=== PATIENT | male | born 1995 | race Caucasian/White ===

== ENCOUNTER 2025-02-11 17:34 | Emergency (ER) | payer OTHER, SELFPAY ==
[2025-02-11 17:44] VITALS: BP 133/87; PULSE 68; RESP 14; TEMP 36.9; O2SAT 99; BMI 22.9
[2025-02-11 17:46] VITALS: BP 113/73; PULSE 64; O2SAT 97
--- NOTE | 2025-02-11 17:47 | HMH.EDGENADL ---
Discharge Plan Disposition Patient Disposition: Home, Self-Care Condition: Good Referrals Follow up/Referrals: Provider,Referral, MD [Primary Care Provider, Medical] - See instructions Activity Restrictions/Add. Instructions Additional Instructions/Restrictions: Please return to the emergency department with any worsening signs or symptoms. Please follow-up with your family doctor in the upcoming days/weeks. Clinical Impressions Clinical Impression: Tick bite of abdomen Instructions Patient Instructions: DI for Insect Bites and Stings, Protect Yourself from Tickborne Illnesses Print Language Print Language: Albanian Discharge ED Provider: Tracey Lubin General Adult HPI General Chief complaint: Skin/Abscess/Foreign Body Stated complaint: tick bite on abdomin Time Seen by Provider: 02/11/25 17:37 Mode of Arrival: Ambulatory Source of Information: Patient Limitations: No Limitations History of Present Illness HPI narrative: 29-year-old male presents to the emergency department with a known tick bite/exposure, patient states around 10 AM he left for a hunting trip , and he noticed the tick had been on him for around 18 to 19 hours he remove the tick this morning, he states that he fully remove the tick, he endorses localized redness and some pain to the area as well as 1 episode of nausea vomiting which prompted his emergency department visit. He believes it was a deer tick . States that he confirmed this , patient denies any fever chills chest pain shortness of breath abdominal pain, no further episodes of nausea vomiting no constipation no diarrhea no urinary symptomatology, patient is a current everyday smoker (vapes), denies any alcohol or drug use, patient has other past medical history consistent with general anxiety disorder/MDD, on SSRI, no relevant past medical history. Initial triage vitals are unremarkable. Please note that above description of symptoms, in this electronic medical record under categorization of recalled from ER triage doctor by RN are reflective of an initial nursing assessment, however, is not reflective of my full history and physical exam that was personally taken and clarified. Consequentially, this preceding description of symptoms, which may include the patient's categorized chief complaint in the EMR, do not reflect my personal clinical impression, and the ultimate description of history of present illness and patient stated complaints should be deferred to this section of the note. Unless stated otherwise or congruent with this section of the note, additional signs, symptoms, or incongruence should be interpreted as inaccurate with my clinical impression. Onset (ago): hour(s) Related Data Allergies Allergy/AdvReac Type Severity Reaction Status Date / Time No Known Allergies Allergy Verified 02/11/25 17:50 [facility] Disclaimer: The information contained in this section may have been updated after the patient was seen, as this information can be updated by other users. Surgical History (Updated 02/11/25 @ 17:50 by Guillermina Montelongo RN) H/O vasectomy Social History Smoking Status: Current every day smoker alcohol intake: never current occupational status: other Travel in the last 8 weeks?: None ROS Obtained: Yes All systems reviewed & no additional complaints except as documented Physical Exam General General appearance: alert and in no apparent distress Head Head exam: atraumatic and normocephalic Eye Eye exam: Present PERRL and EOMI ENT ENT exam: Present mucous membranes moist Neck Neck exam: Present normal inspection Chest Chest inspection: Present normal inspection and symmetric chest wall rise Respiratory Respiratory exam: Present normal lung sounds bilaterally; Absent respiratory distress Cardiovascular Cardiovascular exam: Present regular rate and normal rhythm Abdominal Exam Abdominal exam: Present soft; Absent tenderness Extremities Exam Extremities exam: Present normal inspection Neurological Exam Neurological exam: Present alert and oriented X3 Psychiatric Psychiatric exam: Present normal affect Skin Skin exam: Present warm, dry, erythema and other (Mild area of erythema over the patient's lower abdominal region just below the umbilicus, no real erythema migrans or bull's-eye type rash.) Medical Decision Making Medical Records Medical records reviewed: Yes I reviewed the patient's medical records. Screening: Per USPSTF and CDC recommendations, given the prevalence of disease in our region, it is our hospital?s policy to screen for HIV and viral Hepatitis for all patients aged 18 and over and those with ongoing risk factors. Miguelangel Inquiry Pt receiving controlled substance: No Miguelangel was queried for this patient: No Vital Signs: 02/11/25 17:44 02/11/25 17:46 Temperature 98.4 F Temperature Source Oral Pulse Rate 64 Pulse Rate [Left] 68 Respiratory Rate 14 Blood Pressure 113/73 Blood Pressure [Right Arm] 133/87 Blood Pressure Mean [Right Arm] 102 Blood Pressure Source [Right Arm] Automatic Cuff Blood Pressure Position [Right Arm] Sitting 02 Sat by Pulse Oximetry 99 97 Oxygen Delivery Method Room Air Orders (Tests/Meds): ED MEDICATIONS Discontinued Medications Generic Name Dose Route Start Last Admin Trade Name Freq PRN Reason Stop Dose Admin Doxycycline Hyclate 200 mg 02/11/25 17:47 02/11/25 18:02 Doxycycline Hycl 100 Mg Tablet PO 02/11/25 17:48 200 mg ONCE ONE Administration Medical Decision Narrative: 29-year-old male presents the emergency department for a tick bite/tick exposure differential diagnose include but not limited to tick exposure/tick bite, tickborne illness, tickborne illness prophylaxis, Lyme disease among others. I discussed this patient's case with the attending physician Dr. Lubin I offered to perform serologic testing for Lyme disease and other pathologies to the patient at the bedside patient denied at this time would like to pursue antibiotic treatment. Shared decision making was utilized after this appropriate as patient's symptomatology has been less than 24 hours tick exposure/tick bite was found to be implanted for less than 24 hours, with complete removal of the tick by the patient prior to arrival. Will treat the patient prophylactically with 200 mg p.o. doxycycline, patient was given strict ED return precautions. Patient follow-up with his PCP and other providers in the upcoming days/weeks. Strict ED return precaution given. Patient voiced understanding and agreement with the current treatment plan/discharge plan. Critical Care Critical Care Time Critical Care Time: No
--- OUTSIDE RECORDS SUMMARY | 2025-02-11 17:58 | XMS_ITS | Clinical Summary ---
Author Organization [facility] Address 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 You shall make no further disclosure of thisinformation without the specific, written, and informed release of theindividual to whom it pertains, or as otherwise permitted by law. A generalauthorization for the release of medical or other information is not sufficientfor the purposes of therelease of HIV test results or diagnoses. 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
--- OUTSIDE RECORDS SUMMARY | 2025-02-11 17:59 | XMS_ITS | Patient Health Record ---
Author Organization [facility] Address [address] [place] [address] Support Name Relationship Address Phone Paula Cain Guarantor Unknown [phone] Allergies Allergen (clinical drug ingredient) Drug/Non Drug Allergy documented on EMR Reaction Allergy Type Onset Date Status No Known Drug Allergy Unknown Drug Allergy Active Reason For Referral No Information Medications Medication SIG (Take, Route, Frequency, Duration) Notes Start Date End Date Status Cyclobenzaprine HCl 5 MG Tablet 1 tablet at bedtime as needed Orally Once a day Active Escitalopram Oxalate 20 MG Tablet 1 tablet Orally Once a day Active Sertraline HCl 25 MG Tablet 1 tablet Ora lly Once a day Active Social History Social History DO NOT USE [employer] Question Answer Notes Smoking Duration or number of years of use < 1 ye ar Problems Problem Type SNOMED Code ICD Code Onset Dates Problem Status W/U Status Risk Notes Problem Chronic pain (23303835) Chronic pain (G89.29) Active confirmed Problem Thoracic back pain (118519514) Thoracic back pain (M54.6) Active confirmed Problem Chronic pain syndrome (751174277) Chronic pain syndrome (G89.4) Active confirmed Problem Degeneration of lumbar intervertebral disc (09381709) Other intervertebral disc degeneration, lumbar region (M51.36) Active confirmed Problem Displacement of lumbar intervertebral disc without myelopathy (20020105) Other intervertebral disc displacement, lumbosacral region (M51.27) Active confirmed Problem Degenerative disc disease (63238467) DDD (degenerative disc disease), lumbar (M51.36) Active confirmed Problem Displacement of lumbar intervertebral disc without myelopathy (20020105) Bulging lumbar disc (M51.26) Active confirmed Problem Lumbar radicular pain (4845996512) Lumbar radicular pain (M54.16) Active confirmed Problem Acquired spondylolisthesis (620555192) Spondylolisthesis at L5-S1 level (M43.17) Active confirmed Problem Intervertebral disc disorder (49888120) Intervertebral disc disorder (M51.9) Active confirmed Plan Of Treatment No Information Insurance Providers Payer Name Payer Address Payer Phone Subscriber Number Group Number Insured Name Patient Relationship to Insured Coverage Start Date Coverage End Date 24 only [facility] [address] [place] [phone] [id number] Cain Mitchell Self - patient is the insured Medical (General) History Medical History History ICD Code ptsd anxiety/depression
[2025-02-11] MEDS: DOXYCYCLINE HYCL 100 MG TABLET 200 MG PO (18:02)
[2025-02-11 18:06] VITALS: BP 114/74; PULSE 58; RESP 18; TEMP 36.7; O2SAT 94
== END 2025-02-11 18:14 | disposition home or self-care (01) ==
PROVIDERS: Emergency Provider Student in an Organized Health Care Education/Training Program
DX: S30.861A Insect bite (nonvenomous) of abdominal wall, initial encounter (principal)
CPT/HCPCS: 99283